=== PATIENT | male | born 1945 | race Caucasian/White ===

== ENCOUNTER 2021-09-03 13:09 | Inpatient (IN) | payer MEDICARE ==
[~2021-09-03] VITALS: Ht 175.3 cm; Wt 91.0 kg
[~2021-09-03 13:09] MED LIST: iohexol 350MG/ML 100ml bottle IV ONE
--- NOTE | 2021-09-03 15:43 | NUR ---
PT TO CT
[2021-09-03 15:45] LABS: BASOPHILS % (AUTO) 0.3 % (0-1); EOSINOPHILS % (AUTO) 0.3 % (0-6); HEMATOCRIT 46.4 % (42.0-52.0); HEMOGLOBIN 15.6 g/dl (14.0-17.9); LYMPHOCYTES # (AUTO) 0.4 X10'3 (1.1-4.8); LYMPHOCYTES % (AUTO) 3.6 % (21-51); MEAN CORPUSCULAR HEMOGLOBIN 31.1 PG (27.0-31.0); MEAN CORPUSCULAR HGB CONC 33.7 g/dL (33.0-36.5); MEAN CORPUSCULAR VOLUME 92.3 FL (78-98); MEAN PLATELET VOLUME 6.9 FL (7.4-10.4); MONOCYTES # (AUTO) 0.9 X10'3 (0-0.9); MONOCYTES % (AUTO) 6.9 % (2-12); NEUTROPHILS # (AUTO) 11.1 X10'3 (1.8-7.7); NEUTROPHILS % (AUTO) 88.9 % (42-75); PLATELET COUNT 159 X10'3 (140-440); RED BLOOD COUNT 5.03 X10'6 (4.70-6.10); RED CELL DISTRIBUTION WIDTH 13.6 % (11.5-14.5); WHITE BLOOD COUNT 12.5 X10'3 (4.5-11.0)
[2021-09-03 15:59] LABS: ALANINE AMINOTRANSFERASE 22 U/L (12-78); ALBUMIN 3.6 G/DL (3.4-5.0); ALKALINE PHOSPHATASE 98 IU/L (46-116); ANION GAP 9 (8-16); ASPARTATE AMINO TRANSFERASE 20 U/L (10-37); BILIRUBIN,TOTAL 0.5 MG/DL (0.1-1.0); BLOOD UREA NITROGEN 22 MG/DL (7-18); CALCIUM 9.1 MG/DL (8.5-10.1); CHLORIDE 103 MMOL/L (99-107); CREATININE 1.16 MG/DL (0.60-1.10); GLUCOSE 126 MG/DL (70-104); POTASSIUM 4.7 MMOL/L (3.5-5.1); SODIUM 138 MMOL/L (135-145); TOTAL PROTEIN 7.2 G/DL (6.4-8.2); eGFR 61 ML/MIN
[2021-09-03 16:10] LABS: ETHANOL < 0.010 GM/DL (0.0-0.010)
[2021-09-03 16:50] LABS: CLARITY,URINE CLEAR (Clear); COLOR,URINE YELLOW (Yellow); GLUCOSE, URINE NEGATIVE (Neg); KETONES,URINE NEGATIVE (Neg); LEUKOCYTE ESTERASE ,URINE NEGATIVE (Neg); NITRITES, URINE NEGATIVE (Neg); OCCULT BLOOD,URINE SMALL (Neg); PH,URINE 5.5 (4.8-8.0); PROTEIN,URINE NEGATIVE (Neg); UROBILINOGEN,URINE 0.2 E.U/dL (0.2-1.0)
[2021-09-03 16:56] LABS: URINE AMPHETAMINE SCREEN NEGATIVE (Neg); URINE BARBITUATE SCREEN NEGATIVE (Neg); URINE BENZODIAZEPINES SCREEN NEGATIVE (Neg); URINE CANNABINOID SCREEN NEGATIVE (Neg); URINE COCAINE SCREEN NEGATIVE (Neg); URINE METHADONE SCREEN NEGATIVE (Neg); URINE OPIATE SCREEN NEGATIVE (Neg); URINE PHENCYCLIDINE SCREEN NEGATIVE (Neg)
[2021-09-03 16:58] LABS: UA COLLECTION TYPE STRAIGHT CATH
[2021-09-03 17:01] LABS: BACTERIA,URINE NONE SEEN /HPF (Neg); MUCUS STRANDS NONE SEEN /LPF (Neg); RBC,URINE 0-2 /HPF (0-2); SQUAMOUS EPITHELIAL CELL,UR NONE SEEN /LPF (FEW); WBC,URINE NONE SEEN /HPF (0-4)
[2021-09-03] MEDS ORDERED: HYDROcodone/acetaminophen 10/325mg tab PO PRN (18:15)
[2021-09-03] MEDS ORDERED: mag hydrox/Alum hydrox/simeth 30ml oral suspension PO PRN (18:15)
[2021-09-03] MEDS ORDERED: POTASSIUM BICARB 20meq eff tab 20 MEQ TABLET.EFF PO PRN ×2 (18:15)
[2021-09-03] MEDS ORDERED: diphenhydrAMINE 25mg capsule PO PRN (18:15)
[2021-09-03] MEDS ORDERED: potassium CL 10mEq/100ml bag 100 ML IV PRN (18:15)
[2021-09-03] MEDS ORDERED: bisacodyl 10mg suppository rectal RC PRN (18:15)
[2021-09-03] MEDS ORDERED: magnesium 4gm in 100ml NS 100 ML IV PRN (18:15)
[2021-09-03] MEDS ORDERED: PERFLUTREN PROTEIN-A MICROSPHR (Optison) 0.22 MG/ML 3ML VIAL IV ONE (18:15)
[2021-09-03] MEDS ORDERED: acetaminophen 650mg rectal suppository RC PRN (18:15)
[2021-09-03] MEDS ORDERED: magnesium Cl slow-release 64mg tablet PO PRN (18:15)
[2021-09-03] MEDS ORDERED: magnesium 2GM in 50ml NS 50 ML IV PRN (18:15)
[2021-09-03] MEDS ORDERED: ondansetron/PF 4mg/2ml inj IV PRN (18:15)
[2021-09-03] MEDS ORDERED: acetaminophen 325mg tablet PO PRN ×2 (18:15)
[2021-09-03] MEDS ORDERED: HYDROcodone/acetaminophen 5mg/325mg tablet PO PRN (18:15)
[2021-09-03] MEDS ORDERED: magnesium hydroxide 30ml (MOM) UD suspension PO PRN (18:15)
[2021-09-03] MEDS ORDERED: aspirin 325mg tablet PO ONE (18:40)
[2021-09-03 19:03] LABS: CHOL/HDL RATIO 4.6 (0.00-4.99); CHOLESTEROL 223 MG/DL (0-200); HDL CHOLESTEROL 49 MG/DL (35-60); LDL CHOLESTEROL 148 MG/DL (50-100); TRIGLYCERIDES 193 MG/DL (20-135)
[2021-09-03 19:09] LABS: HEMOGLOBIN A1C 6.5 % (4.5-6.2)
[2021-09-03] MEDS: normal saline 1000ml 1,000 ML IV SCH (19:35)
[2021-09-03] MEDS: heparin, porcine 5000 units/ml vial SQ SCH (19:39)
[2021-09-03] MEDS: docusate sod 100mg capsule PO SCH (20:00)
[2021-09-03] MEDS: K and/or MAG REPLACEMENT MC SCH (20:00)
--- NOTE | 2021-09-03 20:55 | NUR ---
pt arrived to [facility]. pt is not able to state his name but speaks in full sentences. vss. received report from stanislaw Stubbs prior to pt's arrival.
[2021-09-03 21:10] VITALS: BP 137/76
[2021-09-03] MEDS ORDERED: LISI20TA28 PO (23:00)
[2021-09-03] MEDS ORDERED: CARB1TAB41 PO (23:00)
[2021-09-03] MEDS ORDERED: MIRA50TA PO (23:00)
[2021-09-03] MEDS ORDERED: DONE10TA7 PO (23:00)
[2021-09-04 03:25] VITALS: BP 153/84
[2021-09-04] MEDS: normal saline 1000ml 1,000 ML IV SCH ×2 (05:39→14:15)
[2021-09-04 06:00] VITALS: BP 139/72
[2021-09-04 06:00] LABS: BASOPHILS % (AUTO) 0.4 % (0-1); EOSINOPHILS % (AUTO) 0.2 % (0-6); HEMATOCRIT 40.6 % (42.0-52.0); LYMPHOCYTES # (AUTO) 0.5 X10'3 (1.1-4.8); LYMPHOCYTES % (AUTO) 6.2 % (21-51); MEAN CORPUSCULAR HEMOGLOBIN 31.8 PG (27.0-31.0); MEAN CORPUSCULAR HGB CONC 34.4 g/dL (33.0-36.5); MEAN CORPUSCULAR VOLUME 92.3 FL (78-98); MEAN PLATELET VOLUME 7.3 FL (7.4-10.4); MONOCYTES # (AUTO) 0.8 X10'3 (0-0.9); MONOCYTES % (AUTO) 10.1 % (2-12); NEUTROPHILS # (AUTO) 6.2 X10'3 (1.8-7.7); NEUTROPHILS % (AUTO) 83.1 % (42-75); PLATELET COUNT 144 X10'3 (140-440); RED BLOOD COUNT 4.39 X10'6 (4.70-6.10); RED CELL DISTRIBUTION WIDTH 13.4 % (11.5-14.5); WHITE BLOOD COUNT 7.5 X10'3 (4.5-11.0)
--- NOTE | 2021-09-04 06:05 | NUR ---
RECEIVED REPORT FROM INA CLINE
[2021-09-04 06:12] LABS: ALANINE AMINOTRANSFERASE 29 U/L (12-78); ALBUMIN 3.1 G/DL (3.4-5.0); ALKALINE PHOSPHATASE 76 IU/L (46-116); ANION GAP 10 (8-16); ASPARTATE AMINO TRANSFERASE 17 U/L (10-37); BILIRUBIN,TOTAL 0.5 MG/DL (0.1-1.0); BLOOD UREA NITROGEN 19 MG/DL (7-18); BUN/CREATININE RATIO 18.6 (5.4-32.0); CALCIUM 8.1 MG/DL (8.5-10.1); CHLORIDE 103 MMOL/L (99-107); CHOL/HDL RATIO 3.8 (0.00-4.99); CHOLESTEROL 178 MG/DL (0-200); CREATININE 1.02 MG/DL (0.60-1.10); GLUCOSE 111 MG/DL (70-104); HDL CHOLESTEROL 47 MG/DL (35-60); LDL CHOLESTEROL 118 MG/DL (50-100); MAGNESIUM 1.9 MG/DL (1.5-2.4); PHOSPHORUS 3.4 MG/DL (2.3-4.5); POTASSIUM 3.9 MMOL/L (3.5-5.1); SODIUM 139 MMOL/L (135-145); TOTAL CARBON DIOXIDE 26.1 MMOL/L (24-32); TOTAL PROTEIN 6.3 G/DL (6.4-8.2); TRIGLYCERIDES 98 MG/DL (20-135); eGFR 71 ML/MIN
--- NOTE | 2021-09-04 06:15 | NUR ---
Problems reprioritized. Patient report given, questions answered & plan of care reviewed with stanislaw Simons.
[2021-09-04] MEDS: K and/or MAG REPLACEMENT MC SCH ×2 (07:51→20:00)
[2021-09-04] MEDS: aspirin 325mg tablet, delayed-release (Ecotrin) PO SCH (07:56)
[2021-09-04] MEDS: atorvastatin 10mg tablet PO SCH (07:57)
[2021-09-04] MEDS: docusate sod 100mg capsule PO SCH ×2 (07:57→20:00)
[2021-09-04] MEDS: heparin, porcine 5000 units/ml vial SQ SCH ×2 (07:57→21:08)
[2021-09-04 10:00] VITALS: BP 133/67
[2021-09-04 14:00] VITALS: BP 141/71
[2021-09-04] MEDS ORDERED: LISI5TAB22 PO (15:23)
--- NOTE | 2021-09-04 15:36 | NUR ---
PRESSURE ULCER EDUCATION: DEFINITION: A pressure ulcer is an area of skin that breaks down when you stay in one position too long. The constant pressure against the skin reduces the blood flow to that area and the affected tissue dies. CAUSES: "Being bedridden or in a wheelchair "Fragile skin "Having a chronic condition, such as diabetes or vascular disease "Inability to move certain parts of your body without assistance "Older age "Incontinence of urine or stool SYMPTOMS: "A reddened area that DOES NOT turn white when pressed on - this can be the beginning of a pressure ulcer "A blister, deep sore or a crater - these can be advanced pressure ulcers FIRST AID: "Relieve the pressure on this area "Keep the area clean and dry "Call your primary doctor if you see any of the above symptoms "DO NOT massage the area "DO NOT use a donut shaped or ring shaped pillow- these actually interfere with the blood flow and cause complications PREVENTION: "Check for pressure ulcers everyday "Change position at least every two hours to relieve pressure "Use items that help relieve pressure- pillows, sheepskin, foam padding, and powders. "Keep skin clean and dry "Eat healthy well balanced meals "Exercise daily IF YOU SEE ANY OF THESE SYMPTOMS WHILE IN THE HOSPITAL - TELL YOUR NURSE IMMEDIATELY. IF YOU SEE ANY OF THESE SYMPTOMS WHILE AT HOME OR HAVE ANY QUESTIONS OR CONCERNS ABOUT PRESSURE ULCERS - CALL YOUR PRIMARY DOCTOR IMMEDIATELY. Addendum: 09/04/21 at 1536 by Clemencia Wilder LVN Amended: Links added.
--- NOTE | 2021-09-04 18:12 | NUR ---
GAVE REPORT TO June,
[2021-09-04 18:30] VITALS: BP 153/79
[2021-09-04] MEDS: donepezil 5mg tablet PO SCH (21:08)
[2021-09-04] MEDS: carbidopa/levodopa 25/100mg CR tablet PO SCH (21:10)
[2021-09-04 22:00] VITALS: BP 142/76
[2021-09-05] VITALS (7 sets, daily range): BP systolic 127–150; BP diastolic 69–81
--- NOTE | 2021-09-05 | NUR ---
TEMP 103.INFORMED DR. OR[place]O NEW ORDERS GIVEN AND TRANSCRIBED.
[2021-09-05] MEDS: levoFLOXACIN-Levaquin 750MG/D5 150 ML IV SCH ×2 (00:33→10:19)
--- NOTE | 2021-09-05 00:50 | NUR ---
PT COVID POSITIVE,INFORMED DR. OR[place]O NEW ORDERS RECEIVED AND TRANSCRIBED.
[2021-09-05 00:53] LABS: CLARITY,URINE SLIGHTLY CLOUDY (Clear); COLOR,URINE YELLOW (Yellow); GLUCOSE, URINE NEGATIVE (Neg); KETONES,URINE 15 mg/dl (Neg); LEUKOCYTE ESTERASE ,URINE SMALL (Neg); NITRITES, URINE NEGATIVE (Neg); OCCULT BLOOD,URINE MODERATE (Neg); PROTEIN,URINE TRACE mg/dl (Neg); UROBILINOGEN,URINE 0.2 E.U/dL (0.2-1.0)
[2021-09-05 00:57] LABS: UA COLLECTION TYPE STRAIGHT CATH
[2021-09-05 00:59] LABS: BACTERIA,URINE 4+ /HPF (Neg); RBC,URINE 0-2 /HPF (0-2); SQUAMOUS EPITHELIAL CELL,UR NONE SEEN /LPF (FEW); WBC,URINE TNTC /HPF (0-4)
[2021-09-05] MEDS: dexamethasone 4mg/ml inj IV SCH ×3 (01:18→20:52)
[2021-09-05] MEDS: normal saline 1000ml 1,000 ML IV SCH ×3 (04:12→17:57)
[2021-09-05 06:20] LABS: BASOPHILS % (AUTO) 0.1 % (0-1); EOSINOPHILS % (AUTO) 0 % (0-6); HEMATOCRIT 44.2 % (42.0-52.0); HEMOGLOBIN 15.1 g/dl (14.0-17.9); LYMPHOCYTES # (AUTO) 0.8 X10'3 (1.1-4.8); LYMPHOCYTES % (AUTO) 4.6 % (21-51); MEAN CORPUSCULAR HEMOGLOBIN 31.7 PG (27.0-31.0); MEAN CORPUSCULAR HGB CONC 34.2 g/dL (33.0-36.5); MEAN CORPUSCULAR VOLUME 92.6 FL (78-98); MONOCYTES # (AUTO) 0.9 X10'3 (0-0.9); MONOCYTES % (AUTO) 5.4 % (2-12); NEUTROPHILS # (AUTO) 14.8 X10'3 (1.8-7.7); NEUTROPHILS % (AUTO) 89.9 % (42-75); PLATELET COUNT 137 X10'3 (140-440); RED BLOOD COUNT 4.77 X10'6 (4.70-6.10); RED CELL DISTRIBUTION WIDTH 13.7 % (11.5-14.5); WHITE BLOOD COUNT 16.4 X10'3 (4.5-11.0)
[2021-09-05 06:45] LABS: ALANINE AMINOTRANSFERASE 6 U/L (12-78); ALBUMIN 2.8 G/DL (3.4-5.0); ALBUMIN/GLOBULIN RATIO 0.8 (1.1-1.5); ALKALINE PHOSPHATASE 75 IU/L (46-116); ANION GAP 10 (8-16); ASPARTATE AMINO TRANSFERASE 19 U/L (10-37); BILIRUBIN,TOTAL 0.5 MG/DL (0.1-1.0); BLOOD UREA NITROGEN 15 MG/DL (7-18); BUN/CREATININE RATIO 14.7 (5.4-32.0); CALCIUM 8.1 MG/DL (8.5-10.1); CHLORIDE 106 MMOL/L (99-107); CREATININE 1.02 MG/DL (0.60-1.10); GLUCOSE 165 MG/DL (70-104); PHOSPHORUS 3.3 MG/DL (2.3-4.5); POTASSIUM 4.4 MMOL/L (3.5-5.1); SODIUM 140 MMOL/L (135-145); TOTAL PROTEIN 6.2 G/DL (6.4-8.2); eGFR 71 ML/MIN
--- NOTE | 2021-09-05 06:46 | NUR ---
Patient in room ORTH[facility] 4018. I have received report from INA Joe and had the opportunity to ask questions and assume patient care.
[2021-09-05] MEDS: K and/or MAG REPLACEMENT MC SCH ×2 (08:00→20:00)
[2021-09-05] MEDS: mirabegron 25mg ER tablet PO SCH (10:17)
[2021-09-05] MEDS: carbidopa/levodopa 25/100mg CR tablet PO SCH ×3 (10:18→21:03)
[2021-09-05] MEDS: lisinopril 5mg tablet PO SCH (10:19)
[2021-09-05] MEDS: atorvastatin 10mg tablet PO SCH (10:19)
[2021-09-05] MEDS: docusate sod 100mg capsule PO SCH ×2 (10:19→20:52)
[2021-09-05] MEDS: aspirin 325mg tablet, delayed-release (Ecotrin) PO SCH (10:19)
[2021-09-05] MEDS: enoxaparin 40mg/0.4ml syringe SUBCUT SCH ×2 (10:20→20:52)
--- NOTE | 2021-09-05 18:18 | NUR ---
Problems reprioritized. Patient report given, questions answered & plan of care reviewed with April. BUCKLEY.
[2021-09-05] MEDS: donepezil 5mg tablet PO SCH (20:52)
[2021-09-06 02:30] VITALS: BP 136/76
[2021-09-06] MEDS: normal saline 1000ml 1,000 ML IV SCH ×2 (02:30→15:45)
--- NOTE | 2021-09-06 06:26 | NUR ---
Patient in room [facility]TH[facility] 4018. I have received report from INA HEAD and had the opportunity to ask questions and assume patient care.
[2021-09-06 06:27] LABS: BASOPHILS % (AUTO) 0.1 % (0-1); EOSINOPHILS % (AUTO) 0 % (0-6); HEMATOCRIT 39.7 % (42.0-52.0); HEMOGLOBIN 13.4 g/dl (14.0-17.9); LYMPHOCYTES # (AUTO) 0.9 X10'3 (1.1-4.8); MEAN CORPUSCULAR HEMOGLOBIN 31.4 PG (27.0-31.0); MEAN CORPUSCULAR HGB CONC 33.8 g/dL (33.0-36.5); MEAN PLATELET VOLUME 7.5 FL (7.4-10.4); MONOCYTES # (AUTO) 0.6 X10'3 (0-0.9); MONOCYTES % (AUTO) 3.4 % (2-12); NEUTROPHILS # (AUTO) 17.2 X10'3 (1.8-7.7); NEUTROPHILS % (AUTO) 91.5 % (42-75); PLATELET COUNT 162 X10'3 (140-440); RED BLOOD COUNT 4.27 X10'6 (4.70-6.10); RED CELL DISTRIBUTION WIDTH 13.7 % (11.5-14.5); WHITE BLOOD COUNT 18.8 X10'3 (4.5-11.0)
[2021-09-06 06:28] VITALS: BP 144/83
[2021-09-06 06:36] LABS: ALANINE AMINOTRANSFERASE 7 U/L (12-78); ALBUMIN 2.5 G/DL (3.4-5.0); ALBUMIN/GLOBULIN RATIO 0.7 (1.1-1.5); ALKALINE PHOSPHATASE 73 IU/L (46-116); ANION GAP 8 (8-16); ASPARTATE AMINO TRANSFERASE 42 U/L (10-37); BILIRUBIN,TOTAL 0.2 MG/DL (0.1-1.0); BLOOD UREA NITROGEN 19 MG/DL (7-18); BUN/CREATININE RATIO 20.7 (5.4-32.0); CALCIUM 8.6 MG/DL (8.5-10.1); CHLORIDE 109 MMOL/L (99-107); CREATININE 0.92 MG/DL (0.60-1.10); GLUCOSE 199 MG/DL (70-104); PHOSPHORUS 2.8 MG/DL (2.3-4.5); POTASSIUM 4.5 MMOL/L (3.5-5.1); SODIUM 141 MMOL/L (135-145); TOTAL CARBON DIOXIDE 24.2 MMOL/L (24-32); TOTAL PROTEIN 5.9 G/DL (6.4-8.2); eGFR 80 ML/MIN
[2021-09-06] MEDS: K and/or MAG REPLACEMENT MC SCH ×2 (08:00→20:00)
[2021-09-06] MEDS: levoFLOXACIN-Levaquin 750MG/D5 150 ML IV SCH (08:09)
[2021-09-06] MEDS: mirabegron 25mg ER tablet PO SCH (08:09)
[2021-09-06] MEDS: atorvastatin 10mg tablet PO SCH (08:10)
[2021-09-06] MEDS: docusate sod 100mg capsule PO SCH ×2 (08:10→20:44)
[2021-09-06] MEDS: carbidopa/levodopa 25/100mg CR tablet PO SCH ×3 (08:10→20:45)
[2021-09-06] MEDS: aspirin 325mg tablet, delayed-release (Ecotrin) PO SCH (08:10)
[2021-09-06] MEDS: enoxaparin 40mg/0.4ml syringe SUBCUT SCH ×2 (08:11→20:44)
[2021-09-06] MEDS: lisinopril 5mg tablet PO SCH (08:11)
[2021-09-06] MEDS: dexamethasone 4mg/ml inj IV SCH ×2 (08:11→20:46)
[2021-09-06 10:06] VITALS: BP 138/68
--- NOTE | 2021-09-06 11:24 | NUR ---
woods rider at bedside.
[2021-09-06 18:00] VITALS: BP 131/69
--- NOTE | 2021-09-06 18:35 | NUR ---
Problems reprioritized. Patient report given, questions answered & plan of care reviewed with INA Crowley.
--- NOTE | 2021-09-06 18:39 | NUR ---
Patient in room [facility]TH[facility] 4018. I have received report from Johanna BUCKLEY and had the opportunity to ask questions and assume patient care.
[2021-09-06] MEDS: donepezil 5mg tablet PO SCH (20:45)
[2021-09-06 22:00] VITALS: BP 132/74
[2021-09-07] MEDS: normal saline 1000ml 1,000 ML IV SCH ×3 (01:39→21:26)
[2021-09-07 02:00] VITALS: BP 127/64
[2021-09-07 05:50] LABS: BASOPHILS % (AUTO) 0.1 % (0-1); EOSINOPHILS % (AUTO) 0 % (0-6); HEMATOCRIT 38.1 % (42.0-52.0); HEMOGLOBIN 12.7 g/dl (14.0-17.9); LYMPHOCYTES % (AUTO) 5.2 % (21-51); MEAN CORPUSCULAR HEMOGLOBIN 30.7 PG (27.0-31.0); MEAN CORPUSCULAR HGB CONC 33.3 g/dL (33.0-36.5); MEAN CORPUSCULAR VOLUME 92.4 FL (78-98); MEAN PLATELET VOLUME 7.4 FL (7.4-10.4); MONOCYTES # (AUTO) 0.8 X10'3 (0-0.9); MONOCYTES % (AUTO) 4.3 % (2-12); NEUTROPHILS # (AUTO) 16.6 X10'3 (1.8-7.7); NEUTROPHILS % (AUTO) 90.4 % (42-75); PLATELET COUNT 162 X10'3 (140-440); RED BLOOD COUNT 4.13 X10'6 (4.70-6.10); RED CELL DISTRIBUTION WIDTH 13.3 % (11.5-14.5); WHITE BLOOD COUNT 18.3 X10'3 (4.5-11.0)
--- NOTE | 2021-09-07 06:11 | NUR ---
Problems reprioritized. Patient report given, questions answered & plan of care reviewed with Cristina BUCKLEY.
[2021-09-07 06:19] LABS: ALBUMIN 2.3 G/DL (3.4-5.0); ALBUMIN/GLOBULIN RATIO 0.7 (1.1-1.5); ALKALINE PHOSPHATASE 68 IU/L (46-116); ANION GAP 9 (8-16); ASPARTATE AMINO TRANSFERASE 27 U/L (10-37); BILIRUBIN,TOTAL 0.2 MG/DL (0.1-1.0); BLOOD UREA NITROGEN 23 MG/DL (7-18); BUN/CREATININE RATIO 30.3 (5.4-32.0); CALCIUM 8.4 MG/DL (8.5-10.1); CHLORIDE 110 MMOL/L (99-107); CREATININE 0.76 MG/DL (0.60-1.10); GLUCOSE 200 MG/DL (70-104); MAGNESIUM 2.1 MG/DL (1.5-2.4); POTASSIUM 4.6 MMOL/L (3.5-5.1); SODIUM 140 MMOL/L (135-145); TOTAL CARBON DIOXIDE 20.7 MMOL/L (24-32); TOTAL PROTEIN 5.5 G/DL (6.4-8.2); eGFR > 90 ML/MIN
[2021-09-07 06:36] LABS: ALANINE AMINOTRANSFERASE < 6 U/L (12-78)
[2021-09-07] MEDS ORDERED: CARB1TAB23 PO (07:31)
[2021-09-07] MEDS ORDERED: carbidoba-levodopa 25-100mg tablet PO SCH (07:32)
[2021-09-07] MEDS: K and/or MAG REPLACEMENT MC SCH ×2 (08:00→20:00)
[2021-09-07] MEDS: levoFLOXACIN-Levaquin 750MG/D5 150 ML IV SCH (08:35)
[2021-09-07] MEDS: dexamethasone 4mg/ml inj IV SCH ×2 (08:38→21:05)
[2021-09-07] MEDS: mirabegron 25mg ER tablet PO SCH (08:38)
[2021-09-07] MEDS: docusate sod 100mg capsule PO SCH ×2 (08:38→21:05)
[2021-09-07] MEDS: aspirin 325mg tablet, delayed-release (Ecotrin) PO SCH (08:39)
[2021-09-07 08:45] VITALS: BP 165/75
--- NOTE | 2021-09-07 08:45 | NUR ---
Pt seen in room slouched down in the bed, breakfast tray in front of him, breathing heavily and cyanotic/red faced. Pulse ox reading 87 on RA with RR 26, longer expiratory phase, with lots of crackles and wheezing. Repositioned patient and placed on 4 L of 02. The pt recovered back to 97%, I turned the 02 down to 2L and left it on. Pt face less red and states less 02 hunger, but RR still 26+ and labored. Will continue to monitor
[2021-09-07] MEDS: lisinopril 5mg tablet PO SCH (08:53)
[2021-09-07] MEDS: enoxaparin 40mg/0.4ml syringe SUBCUT SCH ×2 (08:53→21:06)
[2021-09-07] MEDS: atorvastatin 10mg tablet PO SCH (08:56)
--- NOTE | 2021-09-07 09:32 | NUR ---
Page to RT: Pt in 4017 (covid) w increased 02 need and RR. tight and wheezy. are you seeing him?
--- NOTE | 2021-09-07 09:38 | NUR ---
pt still wheezy/crackles throughout, I paged RT and will notify MD.
--- NOTE | 2021-09-07 09:43 | NUR ---
Message: Cristina [address] in 401- pt has increased RR 26, now requiring 02- was 87 on RA. Now 95 on 2 L wheezing, fine crackles. can I have RT treat? Please advise- thanks
[2021-09-07] MEDS ORDERED: albuterol 2.5 MG/3 ML nebule NEB PRN (11:10)
--- NOTE | 2021-09-07 11:32 | NUR ---
Initial: Pt presented s/p fall, found to be COVID positive. Pt on a heart healthy diet and overall eating well with mostly 100% PO intake since 09/05 meeting estimated nutrient needs. Per EMR pt A/O x 1 and confused with dementia though independent with meals. Recommend liberalizing to regular diet in view of no significant cardiac PMH and lipid panel mostly WNL with the exception of slightly elevated LDL. LBM 09/06, receiving routine bowel care. No nutrition intervention implemented at this time. Will continue to follow. Recommendations: 1) Liberalize to regular diet; no significant cardiac PMH and lipid panel WNL with the exception of slightly elevated LDL 2) Monitor need for additional protein 3) Routine bowel care 4) Weekly scaled weights Addendum: 09/07/21 at [address] Amended: Links added.
[2021-09-07 14:00] VITALS: BP 141/79
[2021-09-07 17:00] VITALS: BP 124/64
--- NOTE | 2021-09-07 18:54 | NUR ---
Patient in room ORTH[facility] 4018. I have received report from Cristina BUCKLEY and had the opportunity to ask questions and assume patient care. Pt is resting comfortably in bed. no s/s of distress or c/o pain. BLL, call light withni reach, frequently used items in reach, frequent rounding. will continue to monitor.
[2021-09-07] MEDS: carbidoba-levodopa 25-100mg tablet PO SCH (21:05)
[2021-09-07] MEDS: donepezil 5mg tablet PO SCH (21:05)
[2021-09-07 22:00] VITALS: BP 138/67
[2021-09-08 06:00] VITALS: BP 124/64
--- NOTE | 2021-09-08 06:42 | NUR ---
Problems reprioritized. Patient report given, questions answered & plan of care reviewed with Leora BUCKLEY.
[2021-09-08 06:48] LABS: BASOPHILS % (AUTO) 0.1 % (0-1); EOSINOPHILS % (AUTO) 0.1 % (0-6); HEMATOCRIT 39.6 % (42.0-52.0); HEMOGLOBIN 13.1 g/dl (14.0-17.9); LYMPHOCYTES # (AUTO) 0.8 X10'3 (1.1-4.8); LYMPHOCYTES % (AUTO) 5.9 % (21-51); MEAN CORPUSCULAR HEMOGLOBIN 30.7 PG (27.0-31.0); MEAN CORPUSCULAR HGB CONC 32.9 g/dL (33.0-36.5); MEAN CORPUSCULAR VOLUME 93.4 FL (78-98); MEAN PLATELET VOLUME 7.5 FL (7.4-10.4); MONOCYTES # (AUTO) 0.8 X10'3 (0-0.9); MONOCYTES % (AUTO) 5.5 % (2-12); NEUTROPHILS # (AUTO) 12.3 X10'3 (1.8-7.7); NEUTROPHILS % (AUTO) 88.4 % (42-75); PLATELET COUNT 163 X10'3 (140-440); RED BLOOD COUNT 4.25 X10'6 (4.70-6.10); RED CELL DISTRIBUTION WIDTH 13.4 % (11.5-14.5); WHITE BLOOD COUNT 13.9 X10'3 (4.5-11.0)
--- NOTE | 2021-09-08 06:50 | NUR ---
Patient in room [facility]TH[facility] 4018. I have received report from INA Jacinto and had the opportunity to ask questions and assume patient care.
[2021-09-08 07:05] LABS: ALANINE AMINOTRANSFERASE 17 U/L (12-78); ALBUMIN 2.4 G/DL (3.4-5.0); ALBUMIN/GLOBULIN RATIO 0.7 (1.1-1.5); ALKALINE PHOSPHATASE 77 IU/L (46-116); ANION GAP 10 (8-16); ASPARTATE AMINO TRANSFERASE 22 U/L (10-37); BILIRUBIN,TOTAL 0.2 MG/DL (0.1-1.0); BLOOD UREA NITROGEN 20 MG/DL (7-18); BUN/CREATININE RATIO 24.7 (5.4-32.0); CALCIUM 8.3 MG/DL (8.5-10.1); CHLORIDE 108 MMOL/L (99-107); CREATININE 0.81 MG/DL (0.60-1.10); GLUCOSE 206 MG/DL (70-104); MAGNESIUM 2.1 MG/DL (1.5-2.4); PHOSPHORUS 3.4 MG/DL (2.3-4.5); POTASSIUM 4.6 MMOL/L (3.5-5.1); SODIUM 141 MMOL/L (135-145); TOTAL CARBON DIOXIDE 22.8 MMOL/L (24-32); TOTAL PROTEIN 5.7 G/DL (6.4-8.2); eGFR > 90 ML/MIN
[2021-09-08] MEDS: K and/or MAG REPLACEMENT MC SCH ×2 (08:00→20:00)
[2021-09-08] MEDS: normal saline 1000ml 1,000 ML IV SCH (09:28)
[2021-09-08] MEDS: levoFLOXACIN-Levaquin 750MG/D5 150 ML IV SCH (09:28)
[2021-09-08] MEDS: carbidoba-levodopa 25-100mg tablet PO SCH ×3 (09:29→21:43)
[2021-09-08] MEDS: mirabegron 25mg ER tablet PO SCH (09:29)
[2021-09-08] MEDS: aspirin 325mg tablet, delayed-release (Ecotrin) PO SCH (09:29)
[2021-09-08] MEDS: docusate sod 100mg capsule PO SCH ×2 (09:29→21:44)
[2021-09-08] MEDS: atorvastatin 10mg tablet PO SCH (09:29)
[2021-09-08] MEDS: lisinopril 5mg tablet PO SCH (09:32)
[2021-09-08] MEDS: dexamethasone 4mg/ml inj IV SCH (09:32)
[2021-09-08] MEDS: enoxaparin 40mg/0.4ml syringe SUBCUT SCH ×2 (09:33→21:44)
[2021-09-08 10:00] VITALS: BP 133/82
[2021-09-08 15:00] VITALS: BP 148/80
[2021-09-08 18:00] VITALS: BP 172/78
--- NOTE | 2021-09-08 18:39 | NUR ---
Problems reprioritized. Patient report given, questions answered & plan of care reviewed with INA Khanna.
[2021-09-08] MEDS: predniSONE 20 mg tablet PO SCH (21:43)
[2021-09-08] MEDS: donepezil 5mg tablet PO SCH (21:44)
[2021-09-08 22:00] VITALS: BP 163/75
[2021-09-09] MEDS: predniSONE 20 mg tablet PO SCH (05:04)
[2021-09-09 06:00] VITALS: BP 135/68
--- NOTE | 2021-09-09 06:49 | NUR ---
Patient in room [facility]TH[facility] 4018. I have received report from INA Khanna and had the opportunity to ask questions and assume patient care.
[2021-09-09 07:22] VITALS: BP_SYST 135
[2021-09-09] MEDS: mirabegron 25mg ER tablet PO SCH (07:22)
[2021-09-09] MEDS: lisinopril 5mg tablet PO SCH (07:22)
[2021-09-09] MEDS: aspirin 325mg tablet, delayed-release (Ecotrin) PO SCH (07:22)
[2021-09-09] MEDS: docusate sod 100mg capsule PO SCH (07:22)
[2021-09-09] MEDS: atorvastatin 10mg tablet PO SCH (07:22)
[2021-09-09] MEDS: carbidoba-levodopa 25-100mg tablet PO SCH (07:23)
[2021-09-09] MEDS: enoxaparin 40mg/0.4ml syringe SUBCUT SCH (07:23)
[2021-09-09] MEDS: K and/or MAG REPLACEMENT MC SCH (07:36)
[2021-09-09] MEDS ORDERED: predniSONE 20 mg tablet PO SCH (10:00)
[2021-09-09] MEDS ORDERED: ATOR10TA PO (10:24)
[2021-09-09] MEDS ORDERED: ASPI-1071 PO (10:24)
[2021-09-09] MEDS ORDERED: PRED10TA23 PO (10:24)
[2021-09-09] MEDS ORDERED: ALBU8.5H17 INH (10:24)
[2021-09-09] MEDS ORDERED: levoFLOXACIN 750MG TABLET PO SCH (11:00)
--- NOTE | 2021-09-09 16:48 | NUR ---
Patient was discharged at 1210 with instructions and verbalizing understanding of instructions. Since thepatient was in a Covid room and his was not allowed inside the discharge instructions have been presented to the separately and all questions were answered. Patient left in wheelchair accompanied by nursing staff and going home via private vehicle. All lines and tubes have been removed including IV with cannula intact. Medications have been called in to their preferred pharmacy [facility] in [place], [place]. Patient will set up his own follow up appointment with his PCP. Patient is stable and appropriate for discharge.
== END 2021-09-09 12:10 | disposition home or self-care (01) | DRG 88 ==
LOC: ER 13:10 → ED HOLD 18:24 → EDBEDREQ 19:33 → ORTHO 4S 20:56
PROVIDERS: ADMIT Family Medicine; ATTEND Family Medicine
PROC: 4A10X4Z Monitoring of Central Nervous Electrical Activity, External Approach (ICD-10-PCS; principal; 2021-09-04)
DX: S06.0X0A Concussion without loss of consciousness, initial encounter (principal); U07.1 COVID-19; N39.0 Urinary tract infection, site not specified; G93.40 Encephalopathy, unspecified; G30.9 Alzheimer's disease, unspecified; D72.829 Elevated white blood cell count, unspecified; E78.5 Hyperlipidemia, unspecified; W18.39XA Other fall on same level, initial encounter; F02.80 Dementia in other diseases classified elsewhere, unspecified severity, without behavioral disturbance, psychotic disturbance, mood disturbance, and anxiety; G20 Parkinson's disease; I10 Essential (primary) hypertension; Z78.9 Other specified health status; Z79.82 Long term (current) use of aspirin; Z88.0 Allergy status to penicillin; Y93.89 Activity, other specified; Y92.89 Other specified places as the place of occurrence of the external cause; Y99.8 Other external cause status
CPT/HCPCS: 36415; 70450; 70496; 70498; 70544; 70551; 71045; 72125; 80053; 80061; 80305; 80320; 81001; 82140; 83036; 83605; 83735; 84100; 84145; 84443; 84484; 85025; 85651; 86140; 87040; 87077; 87081; 87088; 87186; 87635; 92508; 92616; 93005; 93306; 93880; 94640; 94760; 95816; 97110; 97116; 97162; 97530; 97535; 99285; A4349; A4615; A6213; A6449; C1758; G0378; J1100; J1644; J1650; J1956; J7030; J7512; Q9967